=== PATIENT | male | born 2000 | race Caucasian/White ===

== ENCOUNTER 2021-10-02 20:49 | Emergency (ER) | payer MEDICAID, OTHER ==
[~2021-10-02] VITALS: Ht 177.8 cm; Wt 84.0 kg
[2021-10-02] MEDS ORDERED: IBUPROFEN 600MG TABLET PO ONE (23:45)
[2021-10-03 00:16] VITALS: BP 127/76
== END 2021-10-03 02:28 | disposition left against medical advice (07) ==
LOC: ER 20:49
DX: M54.50 Low back pain, unspecified (principal); V49.9XXA Car occupant (driver) (passenger) injured in unspecified traffic accident, initial encounter; Y93.89 Activity, other specified; Y92.89 Other specified places as the place of occurrence of the external cause; Y99.8 Other external cause status
CPT/HCPCS: 74176; 99284